=== PATIENT | male | born 1945 | race Caucasian/White ===

== ENCOUNTER → 2023-01-06 10:56 | Outpatient (BNVA) | payer MEDICARE, SELFPAY | PROVIDERS: Visit Provider Family Medicine | DX: G89.29 Other chronic pain (principal); M47.816 Spondylosis without myelopathy or radiculopathy, lumbar region; M19.042 Primary osteoarthritis, left hand; M19.041 Primary osteoarthritis, right hand; M16.11 Unilateral primary osteoarthritis, right hip; M21.612 Bunion of left foot; M21.611 Bunion of right foot; M77.8 Other enthesopathies, not elsewhere classified; M19.021 Primary osteoarthritis, right elbow; M54.9 Dorsalgia, unspecified; Z13.6 Encounter for screening for cardiovascular disorders; Z13.1 Encounter for screening for diabetes mellitus; R53.82 Chronic fatigue, unspecified | CPT/HCPCS: 72100; 73080; 73130; 73630; 80053; 80061; 84443; 84550; 85025; 85651; 86038; 86140; 86431 ==